=== PATIENT | female | born 1945 | race Caucasian/White ===

== ENCOUNTER 2016-10-13 11:01 | Emergency (ER) | payer MEDICARE ==
[~2016-10-13] VITALS: Ht 165.1 cm; Wt 55.0 kg
[~2016-10-13 11:01] MED LIST: ACETAMIN500 M2 PO; CALCIUM CITRATE +D PO; CIPROFLOXACIN500 M1 OR; CIPROFLOXACN500 MG PO; IRON325 MG PO; NITROFUR MAC100 MG PO; NO; POT CHLORIDE20 ME3 PO; TRAMADOL HCL50 MG PO; TYLENOL EXTRA500 MG PO
[2016-10-13] MEDS ORDERED: AUGMENTIN875TAB PO (11:16)
[2016-10-13] MEDS ORDERED: POTASSIMIN75 MG PO (11:16)
[2016-10-13] MEDS ORDERED: PLAVIX75 MG PO (11:17)
[2016-10-13] MEDS ORDERED: PERCOCET 5/325M1 TAB PO (11:58)
[2016-10-13 14:00] VITALS: BP 132/72
== END 2016-10-13 14:00 | disposition home or self-care (01) ==
LOC: ED 11:01
DX: M54.17 Radiculopathy, lumbosacral region (principal)

== ENCOUNTER 2020-08-22 09:40 | Emergency (ER) | payer MEDICARE ==
[~2020-08-22] VITALS: Ht 165.1 cm; Wt 61.3 kg
[~2020-08-22 09:40] MED LIST changes: +AUGMENTIN875TAB PO; +PERCOCET 5/325M1 TAB PO; +PLAVIX75 MG PO; +POTASSIMIN75 MG PO
[2020-08-22] MEDS ORDERED: VOLTAREN1%GEL TOP (11:37)
[2020-08-22 12:05] VITALS: BP 124/59
== END 2020-08-22 12:05 | disposition home or self-care (01) ==
LOC: ED 09:40
DX: M54.32 Sciatica, left side (principal); I10 Essential (primary) hypertension

== ENCOUNTER 2021-09-10 22:26 | Observation (INO) | payer MEDICARE ==
[~2021-09-10] VITALS: Ht 165.1 cm; Wt 56.0 kg
[~2021-09-10 22:26] MED LIST changes: +ELIQUIS STARTER5 MG PO; +ELIQUIS5 MG PO; +FLUDROCORT0.1 MG PO; +LEVAQUIN750 M1 PO; +MIDODRINE HYDR2.5 MG PO; +MUCINEX600 MG PO; +OMNICEF300 M1 PO; +PRAVASTATIN40 MG PO; +PREDNISONE20 MG PO; +UROCIT-K 101080 MG PO; +VOLTAREN1%GEL TOP
[2021-09-10 23:07] LABS: HEMATOCRIT 26.1 % (37.0-47.0); HEMOGLOBIN 8.2 g/dl (12.0-16.0); IMMATURE GRANULOCYTES 0.2 % (0.0-5.0); MEAN CORPUSCULAR HGB 31.4 pG CALC (26.0-32.0); MEAN CORPUSCULAR HGB CONC 31.4 g/dL CAL (32.0-36.0); NEUT# 2.87 thou/uL (2.00-7.15); RED BLOOD COUNT 2.61 mill/uL (4.20-5.60); RED CELL DISTRI WIDTH 13.1 % (11.5-15.5)
[2021-09-10 23:18] LABS: ALBUMIN 4.2 g/dL (3.2-5.0); ALKALINE PHOSPHATASE 68 u/l (38-126); ANION GAP 11 (6-22 (CALC)); CARBON DIOXIDE 25 mmol/l (22-30); CHLORIDE 110 mmol/l (95-108); POTASSIUM 4.8 mmol/l (3.5-5.1); SGOT/AST 22 u/l (9-36); SODIUM 142 mmol/l (137-146); TOTAL PROTEIN 7.2 g/dL (6.3-8.2)
[2021-09-10 23:28] LABS: INTERNATIONAL NORMALIZED RATIO 1.1 RATIO (0.7-1.3); PROTHROMBIN TIME 11.2 SECONDS (9.0-12.5)
[2021-09-10 23:30] LABS: MYOGLOBIN 51 ng/mL (0 - 62)
[2021-09-10 23:33] LABS: BILIRUBIN, TOTAL 0.2 mg/dL (0.0-1.4); BUN 45 mg/dL (8-23); BUN/CREATININE RATIO 18 (12-20 (CALC)); CREATININE 2.5 mg/dL (0.5-1.0); GFR 19 ML/MIN (>=60 (CALC)); GFR FOR AFR.AMER. 23 ML/MIN (>=60 (CALC))
[2021-09-11] VITALS (25 sets, daily range): BP systolic 98–144; BP diastolic 66–83
[2021-09-11 00:21] LABS: URINE BILIRUBIN - DIPSTICK NEGATIVE (NEGATIVE); URINE BLOOD DIPSTICK MODERATE (NEGATIVE); URINE COLOR YELLOW; URINE GLUCOSE - DIPSTICK NEGATIVE (NEGATIVE); URINE LEUK ESTERASE LARGE (NEGATIVE); URINE NITRITE - DIPSTICK POSITIVE (Negative); URINE PH 7.5 (4.5-8.0); URINE PROTEIN - DIPSTICK 100 mg/dL (NEG-TRACE); URINE SPECIFIC GRAVITY 1.015; URINE UROBILINOGEN - DIPSTICK 0.2 E.U./dL (0.2)
[2021-09-11 00:22] LABS: URINE KETONE NEGATIVE (NEGATIVE)
[2021-09-11 00:23] LABS: URINE EPITHELIAL CELLS MODERATE EPI/hpf (0-FEW); URINE WBC >100 WBC/hpf (0-5)
[2021-09-11 00:24] LABS: URINE BACTERIA MANY hpf
[2021-09-11] MEDS ORDERED: XARELTO20 MG PO (01:37)
[2021-09-11] MEDS ORDERED: UROCIT-K 101080 MG PO (09:50)
[2021-09-11] MEDS ORDERED: XARELTO10 MG PO (09:50)
[2021-09-11] MEDS ORDERED: OMNICEF300 MG PO (09:55)
[2021-09-11] MEDS ORDERED: MIDODRINE HYDR2.5 MG PO (09:59)
[2021-09-11] MEDS ORDERED: FLUDROCORT0.1 MG PO (09:59)
[2021-09-11 11:11] LABS: HEMATOCRIT 27.8 % (37.0-47.0); HEMOGLOBIN 8.9 g/dl (12.0-16.0); MEAN CELL VOLUME 98.2 fL CALC (80.0-100.0); MEAN CORPUSCULAR HGB 31.4 pG CALC (26.0-32.0); RED BLOOD COUNT 2.83 mill/uL (4.20-5.60); RED CELL DISTRI WIDTH 12.9 % (11.5-15.5)
[2021-09-11 11:14] LABS: CREATININE 1.9 mg/dL (0.5-1.0); POTASSIUM 4.4 mmol/l (3.5-5.1)
[2021-09-12] VITALS (43 sets, daily range): BP systolic 67–164; BP diastolic 42–92
[2021-09-12 06:54] LABS: HEMOGLOBIN 8.8 g/dl (12.0-16.0); MEAN CELL VOLUME 97.5 fL CALC (80.0-100.0); MEAN CORPUSCULAR HGB 31.8 pG CALC (26.0-32.0); MEAN CORPUSCULAR HGB CONC 32.6 g/dL CAL (32.0-36.0); RED BLOOD COUNT 2.77 mill/uL (4.20-5.60); RED CELL DISTRI WIDTH 12.7 % (11.5-15.5)
[2021-09-12 07:00] LABS: CREATININE 1.7 mg/dL (0.5-1.0); POTASSIUM 4.1 mmol/l (3.5-5.1)
== END 2021-09-12 11:00 | disposition home health service (06) ==
LOC: ED 22:26 → ED-I 23:32 → ED 09-11 00:44 → ICU 09-11 00:45
PROVIDERS: Family Medicine; Internal Medicine; ADMIT Hospitalist; ATTEND Hospitalist
DX: N39.0 Urinary tract infection, site not specified (principal); G45.9 Transient cerebral ischemic attack, unspecified; I12.9 Hypertensive chronic kidney disease with stage 1 through stage 4 chronic kidney disease, or unspecified chronic kidney disease; N18.9 Chronic kidney disease, unspecified; E83.119 Hemochromatosis, unspecified; M54.32 Sciatica, left side; B96.89 Other specified bacterial agents as the cause of diseases classified elsewhere; Z95.828 Presence of other vascular implants and grafts; Z95.1 Presence of aortocoronary bypass graft; Z79.01 Long term (current) use of anticoagulants; Z86.718 Personal history of other venous thrombosis and embolism; Z87.440 Personal history of urinary (tract) infections; Z87.442 Personal history of urinary calculi; Z20.822 Contact with and (suspected) exposure to COVID-19

== ENCOUNTER 2021-10-19 11:52 | Emergency (ER) | payer MEDICARE ==
[~2021-10-19] VITALS: Ht 165.1 cm; Wt 56.8 kg
[2021-10-19] VITALS (8 sets, daily range): BP systolic 83–126; BP diastolic 45–76
[~2021-10-19 11:52] MED LIST changes: +OMNICEF300 MG PO; +XARELTO10 MG PO; +XARELTO20 MG PO
[2021-10-19 12:54] LABS: URINE BILIRUBIN - DIPSTICK NEGATIVE (NEGATIVE); URINE BLOOD DIPSTICK SMALL (NEGATIVE); URINE COLOR YELLOW; URINE GLUCOSE - DIPSTICK NEGATIVE (NEGATIVE); URINE KETONE NEGATIVE (NEGATIVE); URINE PROTEIN - DIPSTICK 30 mg/dL (NEG-TRACE); URINE UROBILINOGEN - DIPSTICK 0.2 E.U./dL (0.2)
[2021-10-19 12:55] LABS: ALBUMIN 4.5 g/dL (3.2-5.0); ALKALINE PHOSPHATASE 74 u/l (38-126); ANION GAP 18 (6-22 (CALC)); BILIRUBIN, TOTAL 0.3 mg/dL (0.0-1.4); BUN 49 mg/dL (8-23); BUN/CREATININE RATIO 16 (12-20 (CALC)); CARBON DIOXIDE 21 mmol/l (22-30); CHLORIDE 106 mmol/l (95-108); CREATININE 3.1 mg/dL (0.5-1.0); GFR 15 ML/MIN (>=60 (CALC)); GFR FOR AFR.AMER. 18 ML/MIN (>=60 (CALC)); POTASSIUM 4.4 mmol/l (3.5-5.1); SGOT/AST 23 u/l (9-36); SODIUM 141 mmol/l (137-146); TOTAL PROTEIN 7.8 g/dL (6.3-8.2)
[2021-10-19 12:57] LABS: HEMATOCRIT 26.4 % (37.0-47.0); HEMOGLOBIN 8.5 g/dl (12.0-16.0); IMMATURE GRANULOCYTES 0.2 % (0.0-5.0); MEAN CELL VOLUME 99.6 fL CALC (80.0-100.0); MEAN CORPUSCULAR HGB 32.1 pG CALC (26.0-32.0); MEAN CORPUSCULAR HGB CONC 32.2 g/dL CAL (32.0-36.0); NEUT# 2.45 thou/uL (2.00-7.15); RED BLOOD COUNT 2.65 mill/uL (4.20-5.60); RED CELL DISTRI WIDTH 12.7 % (11.5-15.5)
[2021-10-19 13:00] LABS: URINE LEUK ESTERASE LARGE (NEGATIVE); URINE NITRITE - DIPSTICK NEGATIVE (Negative)
[2021-10-19 13:01] LABS: URINE BACTERIA MANY hpf; URINE EPITHELIAL CELLS FEW EPI/hpf (0-FEW)
== END 2021-10-19 14:20 | disposition home or self-care (01) ==
LOC: ED 11:52
PROVIDERS: Family Medicine
DX: I95.1 Orthostatic hypotension (principal); N17.9 Acute kidney failure, unspecified; N39.0 Urinary tract infection, site not specified; I12.9 Hypertensive chronic kidney disease with stage 1 through stage 4 chronic kidney disease, or unspecified chronic kidney disease; N18.9 Chronic kidney disease, unspecified; B96.20 Unspecified Escherichia coli [E. coli] as the cause of diseases classified elsewhere; Z20.822 Contact with and (suspected) exposure to COVID-19

== ENCOUNTER 2021-10-30 20:04 | Emergency (ER) | payer MEDICARE ==
[~2021-10-30] VITALS: Ht 165.1 cm; Wt 56.8 kg
[2021-10-30] MEDS ORDERED: ASCORBIC ACD500 MG PO (20:55)
[2021-10-30] MEDS ORDERED: VITAMIN D35000 UNI1 PO (20:57)
[2021-10-30] MEDS ORDERED: PROLIA60 MG/ML SC (20:59)
[2021-10-30 21:07] LABS: HEMATOCRIT 28.7 % (37.0-47.0); HEMOGLOBIN 9.4 g/dl (12.0-16.0); IMMATURE GRANULOCYTES 0.4 % (0.0-5.0); MEAN CORPUSCULAR HGB 32.1 pG CALC (26.0-32.0); MEAN CORPUSCULAR HGB CONC 32.8 g/dL CAL (32.0-36.0); NEUT# 2.41 thou/uL (2.00-7.15); RED BLOOD COUNT 2.93 mill/uL (4.20-5.60); RED CELL DISTRI WIDTH 12.4 % (11.5-15.5)
[2021-10-30 21:29] LABS: ALBUMIN 4.7 g/dL (3.2-5.0); BILIRUBIN, TOTAL 0.3 mg/dL (0.0-1.4); POTASSIUM 3.9 mmol/l (3.5-5.1); TOTAL PROTEIN 7.6 g/dL (6.3-8.2)
[2021-10-30] MEDS ORDERED: MIDODRINE HYDR2.5 MG PO (22:10)
[2021-10-30 22:35] VITALS: BP 144/71
== END 2021-10-30 22:35 | disposition home or self-care (01) ==
LOC: ED 20:04
PROVIDERS: Family Medicine
DX: I95.1 Orthostatic hypotension (principal); I10 Essential (primary) hypertension

== ENCOUNTER 2021-12-15 10:17 | Observation (INO) | payer MEDICARE ==
[~2021-12-15] VITALS: Ht 165.1 cm; Wt 55.0 kg
[2021-12-15] VITALS (11 sets, daily range): BP systolic 95–144; BP diastolic 50–87
[~2021-12-15 10:17] MED LIST changes: +ASCORBIC ACD500 MG PO; +PROLIA60 MG/ML SC; +VITAMIN D35000 UNI1 PO
[2021-12-15] MEDS ORDERED: KEFLEX500 MG PO (10:40)
[2021-12-15] MEDS ORDERED: SERTRALINE25 MG PO (10:40)
[2021-12-15 11:21] LABS: ALBUMIN 4.4 g/dL (3.2-5.0); BILIRUBIN, TOTAL 0.4 mg/dL (0.0-1.4); CREATININE 2.1 mg/dL (0.5-1.0); TOTAL PROTEIN 7.5 g/dL (6.3-8.2)
[2021-12-15 11:22] LABS: POTASSIUM 4.9 mmol/l (3.5-5.1)
[2021-12-15 11:38] LABS: URINE BLOOD DIPSTICK SMALL (NEGATIVE); URINE COLOR YELLOW; URINE GLUCOSE - DIPSTICK NEGATIVE (NEGATIVE); URINE KETONE NEGATIVE (NEGATIVE); URINE PH 7.5 (4.5-8.0); URINE PROTEIN - DIPSTICK 100 mg/dL (NEG-TRACE); URINE SPECIFIC GRAVITY 1.015; URINE UROBILINOGEN - DIPSTICK 0.2 E.U./dL (0.2)
[2021-12-15 11:42] LABS: URINE LEUK ESTERASE LARGE (NEGATIVE); URINE NITRITE - DIPSTICK NEGATIVE (Negative)
[2021-12-15 11:43] LABS: URINE BILIRUBIN - DIPSTICK NEGATIVE (NEGATIVE)
[2021-12-15 11:45] LABS: URINE BACTERIA MANY hpf; URINE SQUAMOUS EPITHELIAL CELL FEW EPI/hpf (0-FEW); URINE WBC >100 WBC/hpf (0-5)
[2021-12-15 11:50] LABS: HEMATOCRIT 29.3 % (37.0-47.0); HEMOGLOBIN 9.1 g/dl (12.0-16.0); IMMATURE GRANULOCYTES 0.2 % (0.0-5.0); MEAN CELL VOLUME 103.5 fL CALC (80.0-100.0); MEAN CORPUSCULAR HGB 32.2 pG CALC (26.0-32.0); MEAN CORPUSCULAR HGB CONC 31.1 g/dL CAL (32.0-36.0); NEUT# 2.74 thou/uL (2.00-7.15); RED BLOOD COUNT 2.83 mill/uL (4.20-5.60); RED CELL DISTRI WIDTH 12.6 % (11.5-15.5)
[2021-12-16 04:17] VITALS: BP 131/71
[2021-12-16 06:18] LABS: HEMATOCRIT 29.3 % (37.0-47.0); HEMOGLOBIN 9.4 g/dl (12.0-16.0); MEAN CELL VOLUME 102.1 fL CALC (80.0-100.0); MEAN CORPUSCULAR HGB 32.8 pG CALC (26.0-32.0); MEAN CORPUSCULAR HGB CONC 32.1 g/dL CAL (32.0-36.0); RED BLOOD COUNT 2.87 mill/uL (4.20-5.60); RED CELL DISTRI WIDTH 12.3 % (11.5-15.5)
[2021-12-16 06:23] LABS: CREATININE 1.4 mg/dL (0.5-1.0); POTASSIUM 4.4 mmol/l (3.5-5.1)
[2021-12-16 06:38] LABS: ACT PARTIAL THROMBO TIME 24.7 SECONDS (20.0-32.5); PROTHROMBIN TIME 10.6 SECONDS (9.0-12.5)
[2021-12-16 08:00] VITALS: BP 122/69
[2021-12-16 12:00] VITALS: BP 86/42
[2021-12-16] MEDS ORDERED: OMNICEF300 M1 PO (12:50)
== END 2021-12-16 15:08 | disposition home health service (06) ==
LOC: ED 10:17 → ED-I 12:30 → ED 13:00 → MS2 13:01
PROVIDERS: ADMIT Hospitalist; ATTEND Hospitalist
PROC: 0T9B70Z Drainage of Bladder with Drainage Device, Via Natural or Artificial Opening (ICD-10-PCS; principal; 2021-12-15)
DX: N39.0 Urinary tract infection, site not specified (principal); E86.0 Dehydration; I95.9 Hypotension, unspecified; N18.9 Chronic kidney disease, unspecified; I25.10 Atherosclerotic heart disease of native coronary artery without angina pectoris; E78.5 Hyperlipidemia, unspecified; Z95.5 Presence of coronary angioplasty implant and graft; Z20.822 Contact with and (suspected) exposure to COVID-19
CPT/HCPCS: G0378

== ENCOUNTER 2021-12-27 16:17 | Emergency (ER) | payer MEDICARE ==
[~2021-12-27] VITALS: Ht 165.1 cm; Wt 58.5 kg
[~2021-12-27 16:17] MED LIST changes: +KEFLEX500 MG PO; +SERTRALINE25 MG PO
[2021-12-27 16:56] VITALS: BP 112/60
[2021-12-27 17:00] VITALS: BP 127/65
[2021-12-27] MEDS ORDERED: KEFLEX500 MG PO (17:23)
[2021-12-27] MEDS ORDERED: OMNICEF300 M1 PO (17:25)
[2021-12-27] MEDS ORDERED: COLACE100 MG PO (17:26)
[2021-12-27] MEDS ORDERED: ANTIVERT25 M1 PO (17:27)
[2021-12-27] MEDS ORDERED: XARELTO20 MG PO (17:28)
[2021-12-27 18:01] VITALS: BP 146/84
[2021-12-27 18:30] VITALS: BP 142/65
[2021-12-27 18:41] VITALS: BP 142/65
== END 2021-12-27 18:55 | disposition home or self-care (01) ==
LOC: ED 16:17
DX: M54.2 Cervicalgia (principal); M54.6 Pain in thoracic spine; I10 Essential (primary) hypertension; W18.30XA Fall on same level, unspecified, initial encounter; Y92.009 Unspecified place in unspecified non-institutional (private) residence as the place of occurrence of the external cause

== ENCOUNTER 2022-01-17 10:36 | Observation (INO) | payer MEDICARE ==
[2022-01-17] VITALS (12 sets, daily range): BP systolic 119–154; BP diastolic 60–75
[~2022-01-17] VITALS: Ht 165.1 cm; Wt 56.0 kg
[~2022-01-17 10:36] MED LIST changes: +ANTIVERT25 M1 PO; +COLACE100 MG PO
--- NOTE | 2022-01-17 10:41 | NUR ---
PT BROUGHT TO ROOM 10 FROM LOBBY VIA WC. FRIEND AT BEDSIDE
[2022-01-17 11:15] LABS: HEMATOCRIT 29.2 % (37.0-47.0); HEMOGLOBIN 9.5 g/dl (12.0-16.0); IMMATURE GRANULOCYTES 0.2 % (0.0-5.0); MEAN CELL VOLUME 97.3 fL CALC (80.0-100.0); MEAN CORPUSCULAR HGB 31.7 pG CALC (26.0-32.0); MEAN CORPUSCULAR HGB CONC 32.5 g/dL CAL (32.0-36.0); NEUT# 3.83 thou/uL (2.00-7.15); RED CELL DISTRI WIDTH 12.4 % (11.5-15.5)
--- NOTE | 2022-01-17 11:26 | NUR ---
PT STRAIGHT CATHED FOR URINE AT THIS TIME, TOLERATED WELL. URINE COLLECTED AND SENT TO LAB. CALL CHEN IN REACH, AWAITING RESULTS
[2022-01-17 11:33] LABS: ALBUMIN 4.4 g/dL (3.2-5.0); BILIRUBIN, TOTAL 0.3 mg/dL (0.0-1.4); CREATININE 1.9 mg/dL (0.5-1.0); POTASSIUM 4.7 mmol/l (3.5-5.1); TOTAL PROTEIN 7.4 g/dL (6.3-8.2)
[2022-01-17 11:48] LABS: URINE BILIRUBIN - DIPSTICK NEGATIVE (NEGATIVE); URINE BLOOD DIPSTICK TRACE-INTACT (NEGATIVE); URINE COLOR YELLOW; URINE GLUCOSE - DIPSTICK NEGATIVE (NEGATIVE); URINE KETONE NEGATIVE (NEGATIVE); URINE PH 7.5 (4.5-8.0); URINE PROTEIN - DIPSTICK 30 mg/dL (NEG-TRACE); URINE SPECIFIC GRAVITY 1.015; URINE UROBILINOGEN - DIPSTICK 0.2 E.U./dL (0.2)
[2022-01-17 11:49] LABS: URINE LEUK ESTERASE LARGE (NEGATIVE); URINE NITRITE - DIPSTICK POSITIVE (Negative)
[2022-01-17 11:55] LABS: URINE BACTERIA MANY hpf; URINE RBC 0-2 RBC/hpf (0-5); URINE WBC >100 WBC/hpf (0-5)
--- NOTE | 2022-01-17 14:07 | NUR ---
PT TRANSPORTED AT THIS TIME TO [facility] 270 ON TELEMONITOR. RPT GIVEN AT THE BEDSIDE TO HERNESTO RUIZ, ALL QUESTIONS ADDRESSED. PT LEFT IN STABLE CONDITION AT THIS TIME.
--- NOTE | 2022-01-17 14:32 | NUR ---
PATIENT ARRIVED TO ROOM 270 FROM ER AT 1355, STANDING WEIGHT COMPLETED, ORIENTED TO ROOM, ADMISSION ASSESSMENT COMPLETED AND DOCUMENTED.
--- NOTE | 2022-01-17 16:26 | NUR ---
RESTIGN QUIETLY IN BED, NO SIGNS OR SYMPTOMS OF DISTRESS NOTED OR VOICED.
--- NOTE | 2022-01-17 20:00 | NUR ---
PATIENT RESTING IN BED AT THIS TIME. AWAKE ALERT AND ORIENTED TO PERSON AND PLACE. PATIENT SLOW TO RESPOND TO QUESTIONS. STATES THAT SHE DOES LIVE ALONE. H/O FALL AT HOME. TELE MONITOR INPLACE WITH LAST READING SR-70. IVF NS PATENT AND INFUSING VIA LAC AT 80CC/HR. SITE IS HEALTHY AT THIS TIME. PATIENT WITH CHRONIC UTI'S. WEARS BREIF FOR URINE INCONT. DRY AT THIS TIME. SAFETY PRECAUTIONS REINFORCED. CALL LIGHT IN REACH. WILL CONT TO MONITOR.
--- NOTE | 2022-01-17 22:00 | NUR ---
PATIENT INCONT OF LARGE AMT OF URINE. PROVIDED WITH PERINEAL CARE AND LINENS WERE CHANGED. TELE MONITOR REMAINS IN PLACE. IVF NS PATENT AND INFUSING VIA LAC SITE. SAFETY PRECAUTIONS REINFORCED. CALL LIGHT IN REACH. WILL CONT TO MONITOR.
[2022-01-18] VITALS (10 sets, daily range): BP systolic 109–152; BP diastolic 48–70
--- NOTE | 2022-01-18 | NUR ---
PATIENT RESTING IN BED. NEW IV STARTED TO LEFT UPPER FOREARM-#22 WITH GOOD BLOOD RETURN. IV TO LEFT AC WAS DISLODGED WITH CATH INTACT. IVF NS PATENT AND INFUSING AT 80CC/HR. TELE MONITOR IN PLACE. PUREWICK IN PLACE FOR URINE INCONT. TELE [id number] IN PLACE. SAFETY PRECAUTIONS REINFORCED. CALL LIGHT IN REACH. WILL CONT TO MONITOR.
--- NOTE | 2022-01-18 04:20 | NUR ---
PATIENT RESTING IN BED WITH EYES CLOSED. RESPS ARE EVEN AND UNLABORED. TELE MONITOR IN PLACE. IVF PATENT AND INFUSING VIA LEFT UPPER FORFEARM AT 80CC/HR. PUREWICK DRAINING YELLOW URINE. CALL LIGHT IN REACH. WILL CONT TO MONITOR.
[2022-01-18 05:06] LABS: CREATININE 1.3 mg/dL (0.5-1.0)
[2022-01-18 05:09] LABS: HEMOGLOBIN 8.8 g/dl (12.0-16.0); MEAN CELL VOLUME 96.4 fL CALC (80.0-100.0); MEAN CORPUSCULAR HGB 31.4 pG CALC (26.0-32.0); MEAN CORPUSCULAR HGB CONC 32.6 g/dL CAL (32.0-36.0); RED BLOOD COUNT 2.8 mill/uL (4.20-5.60); RED CELL DISTRI WIDTH 12.3 % (11.5-15.5)
--- NOTE | 2022-01-18 08:00 | NUR ---
RESTING QUIETLY IN BED, NO SIGNS OR SYMPTOMS OF DISTRESS NOTED OR VOICED.
--- NOTE | 2022-01-18 12:20 | NUR ---
RESTING QUIETLY IN BED, NO SIGNS OR SYMPTOMS OF DISTRESS NOTED OR VOICED. AWAITING PT EVAL.
--- NOTE | 2022-01-18 16:06 | NUR ---
RESTIGN QUIETLY IN BED, NO SIGNS OR SYMPTOMS OF DISTRESS NOTED OR VOICED.
--- NOTE | 2022-01-18 22:00 | NUR ---
PT AWAKE ALERT TO SELF, PT IS CONFUSED AND STATES SHE IS NOT IN THE HOSPITAL AND DOES NOT BELIEVE I AM THE NURSE, I TRIED TO REORIENT. TURNED DOWN THE LIGHTS AND HELPED PT GET COMFORTABLE. WILL CONTINUE TO MONITOR PT. NO DISTRESS NOTED BED ALARM ON AND IN LOW POSITION, CALL LIGHT WITHIN REACH
[2022-01-19] VITALS (10 sets, daily range): BP systolic 114–169; BP diastolic 52–81
[2022-01-19 05:53] LABS: HEMATOCRIT 25.4 % (37.0-47.0); HEMOGLOBIN 8.6 g/dl (12.0-16.0); MEAN CELL VOLUME 94.8 fL CALC (80.0-100.0); MEAN CORPUSCULAR HGB 32.1 pG CALC (26.0-32.0); MEAN CORPUSCULAR HGB CONC 33.9 g/dL CAL (32.0-36.0); RED BLOOD COUNT 2.68 mill/uL (4.20-5.60); RED CELL DISTRI WIDTH 12.3 % (11.5-15.5)
[2022-01-19 05:56] LABS: CREATININE 1.2 mg/dL (0.5-1.0); MAGNESIUM 1.6 mg/dL (1.6-2.3); POTASSIUM 3.5 mmol/l (3.5-5.1)
--- NOTE | 2022-01-19 07:00 | NUR ---
PT REPORT RECIEVED FROM [employer] MEASURER
--- NOTE | 2022-01-19 08:15 | NUR ---
PT RESTING IN HIGH FOWLERS POSITION. PT DISORIENTED WITH CONFUSION. ASSESSMENT AND VS COMPLETED. HEART RHYTHM NORMAL ON TELE . RESPIRATIONS EVEN AND UNLABORED. BOWEL SOUNDS ACTIVE. IV SITE NOTED TO LFA. INFUSING WITH NS. PURE WICK NOTED IN PLACE. PT DENIES ADDITIONAL NEEDS AT THE TIME ALL SAFETY PRECAUTIONS IN PLACE.
--- NOTE | 2022-01-19 11:40 | NUR ---
Pt OOB in chair with leg elevated. She was alert and oriented to place/name/birthdate. AROM performed to both LE in reclined position with gentle resist to hip and knee extension 2 x 10 reps. Pt noted to have motor planning difficulty with sit to stand requring physical and verbal cues. CGA required for gait with RW 1x 80' and 1x60' again with motor planning problems for turning. HR 61-61, 02 sats 97-98% Time with pt 35 min A- Pt with safety and motor planning issues noted. She lives alone and would benefit from ECF to improve mobility skill and decrease fall risk. [facility] 13 P- Continue PT until placed.
--- NOTE | 2022-01-19 11:57 | NUR ---
PT RESTING IN HIGH FOWLERS POSITION. PT EATING LUNCH. PT DENIES ADDITIONAL NEEDS . FAMILY LEFT BEDSIDE. ALL SAFETY PRECAUTIONS IN PLACE.
--- NOTE | 2022-01-19 16:00 | NUR ---
PT RESTING IN LOW FOWLERS . PT CONFUSED. STATES SHE NEEDS TO GET TO THE HOSPITAL . PT REORIENTED TO PLACE. SAFETY PRECAUTIONS IN PLACE.
[2022-01-20] VITALS (7 sets, daily range): BP systolic 114–137; BP diastolic 55–76
--- NOTE | 2022-01-20 05:01 | NUR ---
PT A/O X2 TO SELF AND PLACE, PT STATES NO PAIN, NO DISTRESS NOTED AND NO OVERNIGHT EVENTS, PT SLEPT ALL NIGHT. BED ALRM ON AND IN LOW POSITION, CALL LIGHT IN REACH
[2022-01-20 05:36] LABS: HEMATOCRIT 26.3 % (37.0-47.0); HEMOGLOBIN 8.8 g/dl (12.0-16.0); MEAN CELL VOLUME 94.9 fL CALC (80.0-100.0); MEAN CORPUSCULAR HGB 31.8 pG CALC (26.0-32.0); MEAN CORPUSCULAR HGB CONC 33.5 g/dL CAL (32.0-36.0); RED BLOOD COUNT 2.77 mill/uL (4.20-5.60); RED CELL DISTRI WIDTH 12.4 % (11.5-15.5)
[2022-01-20 05:59] LABS: CREATININE 1.1 mg/dL (0.5-1.0); MAGNESIUM 1.7 mg/dL (1.6-2.3); POTASSIUM 3.4 mmol/l (3.5-5.1)
--- NOTE | 2022-01-20 08:09 | NUR ---
REPORT RECIEVED FROM TECH ED/[employer] TEACHER
--- NOTE | 2022-01-20 08:10 | NUR ---
PT RESTING IN HIGH FOWLERS POSITION. PT CONFUSED. ASSESSMENT AND VS COMPLETED. HEART RHYHTM NORMAL WITH TELE IN PLACE. RESPIRATIONS EVEN AND UNLABORED. BOWEL SOUNDS ACTIVE. IV SITE NOTED TO LFA. PT TO BE DC TO [facility] AT NOON. ALL SAFETY PRECAUTIONS IN PLACE. BED ALARM ACTIVE .
[2022-01-20] MEDS ORDERED: CIPROFLOXACN500 MG PO (10:42)
--- NOTE | 2022-01-20 12:36 | NUR ---
Discharge instructions given. Patient verbalizes understanding of same. Discharged in stable condition via stretcher to [facility] with staff. All belongings sent with pt. iv removed tele removed
--- NOTE | 2022-01-20 13:44 | NUR ---
CALLED [facility] TO GIVE REPORT X2 . [facility] STAFF PICKS UP TO TRANSFER CALL. 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
== END 2022-01-20 12:20 ==
LOC: ED 10:36 → ED-I 12:21 → ED 12:33 → MS2 12:34
PROVIDERS: Emergency Medicine; ADMIT Hospitalist; ATTEND Hospitalist
DX: N39.0 Urinary tract infection, site not specified (principal); E86.0 Dehydration; I12.9 Hypertensive chronic kidney disease with stage 1 through stage 4 chronic kidney disease, or unspecified chronic kidney disease; N18.4 Chronic kidney disease, stage 4 (severe); I25.10 Atherosclerotic heart disease of native coronary artery without angina pectoris; F32.A Depression, unspecified; B96.89 Other specified bacterial agents as the cause of diseases classified elsewhere; Z95.1 Presence of aortocoronary bypass graft; Z91.81 History of falling; Z87.440 Personal history of urinary (tract) infections; Z20.822 Contact with and (suspected) exposure to COVID-19

== ENCOUNTER 2022-02-06 12:07 | Observation (INO) | payer MEDICARE ==
[~2022-02-06] VITALS: Ht 165.1 cm; Wt 58.9 kg
[2022-02-06] VITALS (11 sets, daily range): BP systolic 142–176; BP diastolic 75–103
[~2022-02-06 12:07] MED LIST changes: -ASCORBIC ACD500 MG PO; +ASCORBIC ACID500 MG PO
[2022-02-06 12:57] LABS: HEMATOCRIT 29.8 % (37.0-47.0); HEMOGLOBIN 9.5 g/dl (12.0-16.0); IMMATURE GRANULOCYTES 0.2 % (0.0-5.0); MEAN CORPUSCULAR HGB 31.3 pG CALC (26.0-32.0); MEAN CORPUSCULAR HGB CONC 31.9 g/dL CAL (32.0-36.0); NEUT# 2.34 thou/uL (2.00-7.15); RED BLOOD COUNT 3.04 mill/uL (4.20-5.60); RED CELL DISTRI WIDTH 13.1 % (11.5-15.5)
[2022-02-06 13:18] LABS: ALBUMIN 4.3 g/dL (3.2-5.0); ALKALINE PHOSPHATASE 83 u/l (38-126); BUN 35 mg/dL (8-23); BUN/CREATININE RATIO 22 (12-20 (CALC)); CARBON DIOXIDE 26 mmol/l (22-30); CHLORIDE 109 mmol/l (95-108); CREATININE 1.6 mg/dL (0.5-1.0); GFR FOR AFR.AMER. 38 ML/MIN (>=60 (CALC)); GFR OTHER RACES 31 ML/MIN (>=60 (CALC)); SGOT/AST 26 u/l (9-36); SODIUM 142 mmol/l (137-146); TOTAL PROTEIN 7.3 g/dL (6.3-8.2)
[2022-02-06 13:19] LABS: URINE BILIRUBIN - DIPSTICK NEGATIVE (NEGATIVE); URINE BLOOD DIPSTICK SMALL (NEGATIVE); URINE COLOR YELLOW; URINE GLUCOSE - DIPSTICK NEGATIVE (NEGATIVE); URINE KETONE NEGATIVE (NEGATIVE); URINE PROTEIN - DIPSTICK 30 mg/dL (NEG-TRACE); URINE SPECIFIC GRAVITY 1.015; URINE UROBILINOGEN - DIPSTICK 0.2 E.U./dL (0.2)
[2022-02-06 13:22] LABS: ANION GAP 12 (6-22 (CALC)); BILIRUBIN, TOTAL 0.5 mg/dL (0.0-1.4); POTASSIUM 4.5 mmol/l (3.5-5.1)
[2022-02-06 13:24] LABS: URINE LEUK ESTERASE LARGE (NEGATIVE); URINE NITRITE - DIPSTICK NEGATIVE (Negative)
[2022-02-06 13:25] LABS: URINE BACTERIA MODERATE hpf; URINE EPITHELIAL CELLS MODERATE EPI/hpf (0-FEW); URINE WBC 20-50 WBC/hpf (0-5)
[2022-02-07 04:00] VITALS: BP 150/71
[2022-02-07 04:11] VITALS: BP 150/71
[2022-02-07 06:11] LABS: HEMATOCRIT 28.4 % (37.0-47.0); HEMOGLOBIN 8.9 g/dl (12.0-16.0); MEAN CELL VOLUME 98.3 fL CALC (80.0-100.0); MEAN CORPUSCULAR HGB 30.8 pG CALC (26.0-32.0); MEAN CORPUSCULAR HGB CONC 31.3 g/dL CAL (32.0-36.0); NEUT# 1.59 thou/uL (2.00-7.15); RED BLOOD COUNT 2.89 mill/uL (4.20-5.60); RED CELL DISTRI WIDTH 13.1 % (11.5-15.5)
[2022-02-07 06:23] VITALS: BP 130/61
[2022-02-07 06:27] LABS: CREATININE 1.2 mg/dL (0.5-1.0); POTASSIUM 4.1 mmol/l (3.5-5.1)
[2022-02-07] MEDS ORDERED: CEPHALEXIN500 MG PO (09:56)
[2022-02-07] MEDS ORDERED: ESTRACE VAG0.1 MG/GM VA (10:00)
[2022-02-07] MEDS ORDERED: XARELTO20 MG PO (10:35)
[2022-02-07] MEDS ORDERED: MIDODRINE HYDR2.5 MG PO (10:48)
[2022-02-07 15:01] VITALS: BP 136/71
[2022-02-07 19:06] VITALS: BP 100/50
[2022-02-07 20:41] VITALS: BP 135/65
[2022-02-08 00:59] VITALS: BP 156/81
[2022-02-08 04:18] VITALS: BP 165/71
[2022-02-08 06:19] LABS: HEMATOCRIT 30.8 % (37.0-47.0); HEMOGLOBIN 9.8 g/dl (12.0-16.0); IMMATURE GRANULOCYTES 0.2 % (0.0-5.0); MEAN CELL VOLUME 98.4 fL CALC (80.0-100.0); MEAN CORPUSCULAR HGB 31.3 pG CALC (26.0-32.0); MEAN CORPUSCULAR HGB CONC 31.8 g/dL CAL (32.0-36.0); NEUT# 2.85 thou/uL (2.00-7.15); RED BLOOD COUNT 3.13 mill/uL (4.20-5.60); RED CELL DISTRI WIDTH 12.8 % (11.5-15.5)
[2022-02-08 06:46] LABS: CREATININE 1.1 mg/dL (0.5-1.0); POTASSIUM 4.2 mmol/l (3.5-5.1)
[2022-02-08 06:58] VITALS: BP 117/63
[2022-02-08 10:52] VITALS: BP 151/73
[2022-02-08] MEDS ORDERED: CIPROFLOXACN500 MG PO (12:49)
== END 2022-02-08 13:32 ==
LOC: ED 12:07 → ED-I 13:40 → ED 14:07 → MS2 14:08
PROVIDERS: Nurse Practitioner; ADMIT Internal Medicine; ATTEND Internal Medicine
DX: N39.0 Urinary tract infection, site not specified (principal); I95.9 Hypotension, unspecified; I12.9 Hypertensive chronic kidney disease with stage 1 through stage 4 chronic kidney disease, or unspecified chronic kidney disease; N18.30 Chronic kidney disease, stage 3 unspecified; I25.10 Atherosclerotic heart disease of native coronary artery without angina pectoris; B96.20 Unspecified Escherichia coli [E. coli] as the cause of diseases classified elsewhere; Z95.1 Presence of aortocoronary bypass graft; Z95.5 Presence of coronary angioplasty implant and graft; Z87.440 Personal history of urinary (tract) infections; Z95.828 Presence of other vascular implants and grafts; Z20.822 Contact with and (suspected) exposure to COVID-19
CPT/HCPCS: J0692; J1650